=== PATIENT | male | born 1975 | race Caucasian/White ===

== ENCOUNTER → 2016-12-06 | Day surgery (SDC) | payer OTHER ==
[2016-12-06] VITALS (10 sets, daily range): BP systolic 97–147; BP diastolic 52–100; PULSE 62–76; RESP 12–17; O2SAT 94–99
[~2016-12-06] VITALS: Ht 188 cm; Wt 102.2 kg
[~2016-12-06] MED LIST: ATEN50TA PO; Belladonna Alk-Opium 60 mg Rectal Suppository RECTAL ONE; Dexamethasone 4 mg/mL Inj IVPUSH PRN; Dexamethasone 4 mg/mL Inj ONE; EPHEDrine Sulfate 50 mg/mL Inj IVPUSH PRN; GABA-502 PO; HYDROcodone-APAP 5-325 mg Tablet PO PRN; Ketamine 10 mg/mL 20 mL Inj ONE; LOSA1TAB70 PO; Lactated Ringer's 1,000 ML IV SCH; Lactated Ringer's 500 ML IV PRN; METH500T PO; MetoCLOpramide 5 mg/mL 2 mL Inj IVPUSH PRN; NPR500T PO; Ondansetron 2 mg/mL 2 mL Inj IVPUSH PRN; Ondansetron 2 mg/mL 2 mL Inj ONE; Phenylephrine 10,000 mCg/mL Inj IVPUSH PRN; Propofol 10,000 mCg/mL 20 mL Inj ONE; TAMS0.4C98 PO; TRAM50TA2 PO; fentaNYL-PF 50 mCg/mL 2 mL Inj IVPUSH PRN; fentaNYL-PF 50 mCg/mL 2 mL Inj ONE; levoFLOXacin Inj 500 MG in IV Premix 1 EACH IV ONE
[2016-12-06] MEDS: Lactated Ringer's 1,000 ML IV SCH ×3 (05:50→08:54)
--- NOTE | 2016-12-06 06:57 | PCM.HPANE ---
Patient Data Surgeon Admitting Provider: Attending Provider:Maninder Bryant MD Primary Care Physician:Nicholas Other Provider:Alicja Chaparro Anesthesia Reason for Visit Right Ureteral Stone Ht/WT & BMI Height (Feet): 6 Height (Inches): 2 Weight (Kilograms): 102.2 Body Mass Index 28.00 Allergies Coded Allergies: oxycodone (Verified Allergy, Severe, HIVES,DIZZINESS,TACHYCARDIA ( ACETAMINOPHEN,OXYCODONE), 11/30/16) Past Anesthesia History Anesthesia History: Denies:: Abnormal Airway, Anesthesia Reactions, Difficult Intubation, Malignant Hyperthermia Diabetes History Hx Diabetes?: No MRSA MRSA: No Medications Hypertension Medication: Yes (LOSARTAN/HCTZ) Home Meds Incl Beta Renny: Yes (atenolol) Date Beta Renny Taken: Dec 06, 2016 Time Beta Renny Taken: 414 Reported Medications Naproxen 500 Mg [id number] Mg PO QID PRN For Pain Ref 0 11/30/16 Losartan/HCTZ 100-25 mg 1 Each Tablet1 Tablet PO DAILY Ref 0 11/30/16 Gabapentin 300 Mg [id number] Mg PO QID Ref 0 11/30/16 Tamsulosin (Flomax)0.4 Mg Capsule0.4 Mg PO DAILY Ref 0 11/30/16 Atenolol 50 Mg [id number] Mg PO DAILY #30 TABLET Ref 0 11/30/16 Methocarbamol (Robaxin)500 Mg Tablet1,000 Mg PO QID 11/30/16 Tramadol 50 Mg [id number] Mg PO Q6H PRN For Pain Ref 0 11/30/16 History History of ENT Problems?: No HEENT History: Denies:: Abnormal Airway Difficult Intubation Denture Type: None Teeth Condition: Within Normal Limits Hx of Heart Problems?: Yes Cardiovascular History: Positive for:: Hypertension Hx of Respiratory Problem?: No Respiratory History: Denies:: Use of C-PAP Machine Hx Neurologic Problems?: No Hx of GI Problems?: No Hx of Problems?: Yes Genitourinary History: Positive for:: Kidney Stones (RT URETERAL STONE= CURRENT PROBLEM HX PRIOR STONES(ALSO LT. STONE PRESENT)) Other Pertinent History: C/OF RT FLANK PAIN Male Hx: Denies:: Prostate Problems Scrotal Mass Testicular Surgery Skin History: Denies:: History Skin Disorders? Pressure Ulcers Hx Musculoskeletal Problems?: Yes Musculoskeletal History: Positive for:: Back Injury (C/OF CHRONIC BACK PAIN) Musculoskeletal Trauma (S/P LT KNEE RPR, RT SHOULDER RPR) Hx of Psycho/Social Problems?: No Hx Surgeries?: Yes (LT KNEE RPR,RT SHOULDER RPR,SPINAL FUSION/DISCECTOMY) Hx Any Other Health Problems?: Yes Other History: Denies:: Cancer Endocrine Disease Hospitalization Thyroid Disease Hx Diabetes: No Have You Smoked inLast 12 mo: No Stop/Bang S-Snoring: Do You Snore Loudly: No T-Tired: feel tired, fatigued: No O-Obsered: Observed not breath: No P-Blood Pressure: treated: Yes B- Body Mass Index > 35 kg/m2: No A- Age over 50: No N- Neck Large Circumference: Yes G- Gender Male: Yes LIDIA Total Score: 3 LIDIA Risk Assessment: High Risk, =/>3 Yes LIDIA Category 4 OutPt Procedure: Yes Risk Assessment Category Category 1A: Patient has history of documented sleep apnea, and HAS NOT received any narcotic, sedative or anesthesia administration during this stay. Category 1B: Patient has history of documented sleep apnea, and HAS received any narcotic , sedative or anesthesia administration during this stay Category 2: Patient has SUSPECTED Obstructive Sleep Apnea, and HAS received any narcotic , sedative or anesthesia administration during this stay. Category 3: Patient has SUSPECTED Obstructive Sleep Apnea and HAS NOT received narcotic, sedative or anesthesia administration during this stay. Category 4: Outpatient in Procedural Areas with known sleep apnea or who screen positive for High Risk via the STOP/BANG questionnaire. Exam Exam Vital Signs Vital Signs Date Time Temp Pulse Resp B/P Pulse Ox O2 Delivery O2 Flow Rate FiO2 12/06/16 06:03 36.4 63 16 147/100 98 Room Air General Appearance: Alert, Oriented X3, Cooperative, No Acute Distress HEENT/AIRWAY: MP 2 Lungs: Clear to Auscultation, Normal Air Movement Heart: Exam Unremarkable, Regular Rate/Rhythm, No Murmurs/Rubs/Gallops Meds/Labs/Diagnostics Admission Meds Current Medications Lactated Ringer's (Lr) 1,000 ml @ 120 mls/hr Q8H20M IV Last administered on t 05:50; Start 12/06/16 at 05:00; Stop 12/06/16 at 13:19 Plan Impression Patient chart reviewed, patient interviewed and anesthestic plan with risks, benefits, and alternatives discussed, and informed consent obtained. ASA Physical Status: ASA2 Mod Systemic Disease Anesthetic Plan: GA Bene/Risks/Altern/Consents: Yes HP Complete Prior to Induction: Yes Keven John MD Dec 06, 2016 06:57
--- NOTE | 2016-12-06 08:57 | PCM.SURGPO ---
Immediate Operative Note Date of Surgery: Dec 06, 2016 Pre Operative Diagnosis R ureteral calculus Post Operative Diagnosis R ureteral calculus Procedure Cystoscopy, R ureteroscopy (diagnostic), and R ureteral stent placement Surgeon and Vegetable Worker Surgeon: Maninder Bryant MD Assistants: None Findings Cystoscopy revealed no bladder tumors, lesions, or calculi. R semi-rigid ureteroscopy revealed no calculi in R distal ureter. Semi-rigid ureteroscope was unable to be passed into R mid ureter secondary to significant edema and narrowed ureter in R mid-distal ureter, and R ureteral calculus was unable to be visualized. R ureteral stent placement was performed. Complications There were no periprocedural complications identified. Surgical Specimen Removed: No Specimen sent to Pathology: No Anesthetic Administered: GA Grafts, Implants: Other (6F x 22-32cm multi-length R ureteral JJ stent (no string)) Output, Estimated Blood Loss: <5 Blood Admin during surgery: No Additional information Patient to return to see FADY Méndez in 3-5 days for post-op visit, with a KUB prior to appt. Patient will need treatment (ureteroscopy, Holmium laser lithotripsy, basket extraction of calculus fragments vs. ESWL) of R ureteral calculus in the future. Maninder Bryant MD Dec 06, 2016 08:57
--- NOTE | 2016-12-06 10:08 | PCM.DISURG ---
Surgical Discharge Instruction Date of Service Dec 06, 2016 Dates of Hospitalization Date of Hospital Admission Dec 06, 2016 Providers Admitting Physician: Maninder Bryant MD Primary Care Physician: Nopron Attending Physician: Maninder Bryant MD Discharge Diagnosis Discharge Diagnosis R ureteral calculus Post Operative diagnosis R ureteral calculus Diet Discharge Diet: No restrictions, Other (Drink at least 10-12 8oz. glasses (3 liters) of fluids per day) Activity Discharge Activity-General: No driving while taking narcotic Dressing and Incisional Care Hygiene: May shower Follow Up Plan Mid-level Provider (F9): Stephany Méndez PA-C Follow-up appointment: Days (FADY Méndez in 3-5 days for post-op visit, with a KUB prior to appt. ) Call your provider for: Fever, Chills, Vomiting, Other (Pain uncontrolled by pain medications) Maninder Bryant MD Dec 06, 2016 10:08
--- NOTE | 2016-12-06 13:04 | PCM.ANEP1 ---
Post Anesthesia PACU Phase 1 Assessment Vital Signs Vital Signs Date Time Temp Pulse Resp B/P Pulse Ox O2 Delivery O2 Flow Rate FiO2 12/06/16 11:30 64 17 139/85 98 Room Air 12/06/16 09:30 36.0 76 15 133/83 97 Room Air 12/06/16 09:24 70 15 132/81 94 Room Air 12/06/16 09:15 36.4 73 14 128/95 95 Room Air 12/06/16 09:00 69 15 111/76 99 Room Air 12/06/16 08:55 36.4 68 14 104/73 98 Simple Mask 6 12/06/16 08:50 62 12 101/60 97 Simple Mask 6 12/06/16 08:45 62 12 97/57 97 Simple Mask 6 12/06/16 08:41 36.6 104/52 12/06/16 06:03 36.4 63 16 147/100 98 Room Air Anesthetic Administered: GA Level of Alertness: Sleepy, easy to arouse LIRIANO's with Equal Strength: Yes Pain: No Nausea or Vomiting: No CV Function & Hydration Stable: Yes Airway Device: none Lungs: Clear to Auscultation, Normal Air Movement Dermatome Level: Full Sensation PACU Phase 2 Assessment Complications: No Follow up Care: No Patient Instructions Provided: N/A Keven John MD Dec 06, 2016 13:04
--- NOTE | 2016-12-06 14:41 | DRSVH ---
PROCEDURE: X-RAY RETROGRADE UROGRAPHY INDICATIONS: RIGHT URETERAL STONE TECHNIQUE: 4 intra-operative images acquired by the Urology service. COMPARISON: Outside Film, CT, CT KUB, 10/24/2016, 11:14. FINDINGS: Exam is limited to poor submitted images. Within these limits the right renal collecting system has been opacified and there is mild/moderate hydronephrosis. The ureter is not imaged. Uret eral stent placement. IMPRESSION: Limited exam demonstrating mild/moderate right hydronephrosis and ureteral stent was plac ed. Dictated by: Man Vela [facility] Interpreted: Lenard Reyes MD on 12/06/2016 at 10:08 Approved by: Lenard Reyes M.D. on 12/06/2016 at 14:39
--- NOTE | 2016-12-06 18:43 | OP ---
[address] [address] OPERATIVE REPORT PATIENT: PRAVIN PARIS : 1975 MR#: [id number] ADMIT: 12/06/2016 JOB ID: [id number] DATE OF SURGERY: 12/06/2016 SURGEON: Maninder Bryant MD STAKING PRESS OPERATOR: None. PREOPERATIVE DIAGNOSIS(ES): Left renal calculus. POSTOPERATIVE DIAGNOSIS(ES): Left renal calculus. PROCEDURE: Cystoscopy, left ureteroscopy, holmium laser lithotripsy, basket extraction of calculus fragments and left ureteral stent placement. ANESTHESIA: General. ESTIMATED BLOOD LOSS: Less than 5 mL. SPECIMENS: None. DRAINS: A 5-Kazakh x 22-32 cm multi-length left ureteral double-J stent. COMPLICATIONS: None. CONDITION: Stable. FINDINGS: Cystoscopy revealed no bladder tumors or calculi. Left semi-rigid ureteroscopy revealed no calculi in left distal or left mid ureter. A 12/14-Kazakh ureteral access sheath was placed in the left ureter. CANCEL DICTATION - ERROR PER DR. BRYANT:
--- NOTE | 2016-12-06 19:37 | OP ---
[address] [address] OPERATIVE REPORT PATIENT: PRAVIN PARIS : 1975 MR#: [id number] ADMIT: 12/06/2016 JOB ID: [id number] DATE OF SURGERY: 12/06/2016 SURGEON: Maninder Bryant MD NURSE DISCHARGE: None. PREOPERATIVE DIAGNOSIS(ES): Right ureteral calculus. POSTOPERATIVE DIAGNOSIS(ES): Right ureteral calculus. PROCEDURE: Cystoscopy, right ureteroscopy (diagnostic) and right ureteral stent placement. ANESTHESIA: General. ESTIMATED BLOOD LOSS: Less than 5 mL. SPECIMENS: None. DRAINS: A 6-Albanian x 22-32 cm multi-length right ureteral double-J stent. COMPLICATIONS: None. CONDITION: Stable. FINDINGS: Cystoscopy revealed no bladder tumors, lesions, or calculi. Right semi-rigid ureteroscopy revealed no calculi in right distal ureter. The semi-rigid ureteroscope was unable to be passed into the right mid ureter secondary to significant edema and narrowed ureter and right mid to distal ureter and right ureteral calculus was unable to be visualized. Right ureteral stent placement was performed. INDICATIONS: The patient is a 41-year-old male, seen by FADY Deluna in the office on November 14, 2016 with a right mid ureteral calculus and patient now presents for cystoscopy, right ureteroscopy, holmium laser lithotripsy, basket extraction of calculus fragments and right ureteral stent placement. DESCRIPTION OF PROCEDURE: The patient was brought to the operating room and placed supine on operating room table. The patient was given Levaquin IV antibiotics. Sequential compression device boots were placed. General anesthesia was administered. The patient was brought down into dorsal lithotomy position. The patient was prepped and draped in standard surgical fashion. A 22-Albanian rigid cystoscope was placed into the distal urethra without difficulty. Cystoscopy revealed normal distal urethra. No bladder tumors, lesions, or calculi. Bilateral orifices in normal position. An angle tip UltraTrack guidewire was passed into the right ureteral orifice and into the right distal ureter. However, this guidewire was unable to be initially passed past the obstruction the right distal ureter which was the calculus. A 5-Albanian open-ended catheter was passed over the guidewire into the right distal ureter and with assistance of a 5-Albanian open-ended catheter, the angle tip UltraTrack guidewire was still unable to be passed past the calculus. The UltraTrack guidewire was removed. An angle tip 0.035 Glidewire was passed through the open-ended catheter into the right distal ureter and this guidewire was unable to be passed past the obstruction obstructing right distal ureteral calculus. The Glidewire was removed. A straight tip 0.025 Glidewire was passed through the open-ended catheter into the right distal ureter and with some difficulty able to be manipulated past the obstructing calculus of the remainder of the right ureter and into the right renal pelvis. Open-ended catheter was removed. The rigid cystoscope was removed from the patient. The Glidewire was secured to the drape with a Kaila clamp as a safety wire. A semi-rigid ureteroscope was passed through the urethra and bladder into the right distal ureter and into the right ureteral orifice. Right semi-rigid ureteroscopy revealed no calculi in the right distal ureter. PTFE guidewire was passed up the right ureter. Semi-rigid ureteroscope was unable to be passed even with assistance of the PTFE guidewire. It was unable to be passed into the right mid ureter secondary to significant amount of edema and narrowed ureter in the right mid to distal ureter and the right ureteral calculus was unable to be visualized. A decision was made to place right ureteral stent and allow the right ureter to passively dilate. The semi-rigid ureteroscope was removed from the patient. The cystoscope was passed over the safety Glidewire through the urethra into the bladder. A 5-Albanian open-ended catheter was able to passed over the Glidewire up the right ureter into the right renal pelvis. The Glidewire was removed. A small amount of contrast was instilled through the open-ended catheter into the right renal collecting system to illuminate the right renal collecting system to aid in stent placement. Right hydronephrosis was seen. The angle tip UltraTrack guidewire was advanced through the open-ended catheter, up the right ureter into the right renal pelvis. Open-ended catheter was removed. A 6-Albanian x 22-32 cm multi-length ureteral double-J stent, with the stent string removed prior to stent placement, was passed over the guidewire, through the cystoscope and passed up the right ureter and placed so that the proximal pigtail was located in the right renal pelvis and distal pigtail was located in the bladder. The guidewire was removed. Correct positioning of the stent was confirmed both fluoroscopically and under direct visualization using cystoscope. Good efflux of contrast could be seen draining the distal end of the stent into the bladder further confirming correct stent positioning. The bladder was drained via the cystoscope. Cystoscope was removed from the patient. Skin was cleaned and dried. The patient was placed in supine position. The patient was awakened from general anesthesia and transferred to the recovery room in stable condition. The patient tolerated procedure well. The plan is for the patient to return to see FADY Méndez in 3-5 days for postop visit with a KUB prior to the appointment. The patient will need treatment (ureteroscopy, holmium laser lithotripsy, basket extraction of calculus fragments versus ESWL) of the right ureteral calculus in the future.
== END | disposition home or self-care (01) ==
LOC: SAS 05:36
PROVIDERS: ATTEND Urology
DX: N20.1 Calculus of ureter (principal); N35.9 Urethral stricture, unspecified; I10 Essential (primary) hypertension; M54.5 Low back pain; Z87.442 Personal history of urinary calculi
CPT/HCPCS: 52332; 52351; 74420; C2617; J2405; J7120; Q9967